=== PATIENT | female | born 1975 | race Caucasian/White ===

== ENCOUNTER → 2019-09-24 11:29 | Outpatient (CLI) | payer OTHER, SELFPAY ==
--- NOTE | ~2019-09-24 | MM_ITS ---
EXAMINATION: MM screening [facility] w [facility] del carmen HISTORY: Screening TECHNIQUE: Craniocaudal and mediolateral oblique 3-D tomosynthesis images were obtained and synthetic 2-D images were generated. CAD analysis was submitted and interpreted. COMPARISON: Comparison to multiple prior studies sequentially, with oldest reviewed study dated 09/05. BREAST PARENCHYMAL COMPOSITION: There are scattered areas of fibroglandular density. FINDINGS: There is no evidence of suspicious mass, calcification, or architectural distortion to sugg est malignancy in either breast. There has been no suspicious interval change. IMPRESSION: 1. No mammographic evidence of malignancy. 2. Recommend routine screening mammography in one year. BI-RADS Category 1: Negative Reviewed, dictated and finalized at location A.
== END ==
PROVIDERS: Visit Provider Nurse Practitioner
DX: Z12.31 Encounter for screening mammogram for malignant neoplasm of breast (principal)
CPT/HCPCS: 77063; 77067

== ENCOUNTER 2022-03-29 16:48 | Outpatient (RCR) | payer BC, SELFPAY ==
[2022-04-01] MEDS: RHO(D) IMMUNE GLOBULIN 300 MCG/2 ML SYRINGE IM (11:42)
== END 2022-06-27 23:59 | disposition home or self-care (01) ==
LOC: ANHLAB 16:48
PROVIDERS: PCP Family Medicine; Visit Provider Obstetrics & Gynecology Gynecology
DX: Z29.13 Encounter for prophylactic Rho(D) immune globulin (principal); O36.0190 Maternal care for anti-D [Rh] antibodies, unspecified trimester, not applicable or unspecified; Z3A.00 Weeks of gestation of pregnancy not specified
CPT/HCPCS: 36415; 85461; 86850; 86900; 86901; 90384; 96372; J2790

== ENCOUNTER 2022-07-28 12:21 | Outpatient (CLI) | payer BC, SELFPAY ==
[2022-07-28 13:04] LABS: Hematocrit 41.2 % (37.0-47.0); Hemoglobin 13.9 g/dL (12.0-15.0)
== END 2022-07-28 12:22 | disposition home or self-care (01) ==
PROVIDERS: Visit Provider Obstetrics & Gynecology Gynecology
DX: D25.9 Leiomyoma of uterus, unspecified (principal); Z01.818 Encounter for other preprocedural examination
CPT/HCPCS: 36415; 85014; 85018; 86850; 86900; 86901

== ENCOUNTER 2022-08-02 10:20 | Inpatient (IN) | payer BC, SELFPAY ==
[2022-07-27 09:54] VITALS: BMI 36.0
--- NOTE | 2022-07-27 09:58 | PC.NURSE ---
Report to the Outpatient Waiting Room, entrance under the green pavilion located off [facility], at time 6:00 on date 08/02/22. Planned Procedure Time: 7:30. Time changes happen often and if your time is changed the preop area will call you the afternoon before. - You and your visitor will be asked to self-screen and do not enter if you have any COVID symptoms. - A mask is optional within the hospital at this time. Patients may have clear liquids (water, carbonated beverages, clear teas, apple juice) until 3 hours prior to surgery (4:30) with a maximum of 20 ounces. - No food from midnight until time of surgery Take the following medications with a SIP of water the morning of surgery: NONE DO NOT STOP ANY OF YOUR OTHER PRESCRIPTION MEDICATIONS PRIOR TO SURGERY?EXCEPT THE FOLLOWING Medications to discontinue per physician: VITAMINS/SUPPLEMENTS Date to take last dose: 07/29/22 Please no make-up, nail turkmen, hairspray, perfume, deodorant, or body powder the day of surgery. No jewelry (including any body piercings) or valuables the day of surgery, leave them at home. Please take a shower or bath the night before, or the morning of, surgery with an antibacterial soap. Wear comfortable, loose fitting clothing. - Jewelry must be removed prior to entering the operating room. Rings and piercings that are not removed may be cut off. - The hospital will not accept responsibility for valuables. - Please leave all valuables, including medications, at home the day of surgery. If you are going home after surgery, a licensed regional company truck driver must drive you home. - NO public transportation without another adult if you receive anesthesia. - We recommend that an adult stay with you for 24 hours following discharge. - We also recommend that you do not drive, make important decision, drink alcoholic beverages, or take any drugs that were not prescribed by your health care provider for at least 24 hours after your discharge time. Follow any additional instructions given to you from your surgeon. If you or anyone in your household have experienced Covid symptoms in the past week, please notify your surgeon or the nurse liaison at the phone number below for possible testing. Telephone instructions given to PT - EVARISTO MERINO and asked if any additional questions and then verbalized understanding. Patient advised to call surgeon office or pre surgery nurse liaison [phone] if any additional questions.
[2022-08-02] VITALS (11 sets, daily range): BP systolic 93–125; BP diastolic 54–81; PULSE 49–64; RESP 10–18; TEMP 36.2–37.2; O2SAT 94–100
[2022-08-02] MEDS: ACETAMINOPHEN 500 MG TABLET 1000 MG PO (06:20)
--- NOTE | 2022-08-02 07:03 | WPDANESEPPF ---
Anes - Initial Pre Proc Eval Procedure: Operation Date: 08/02/22 07:30 Proposed Procedures p Total Abdominal Hysterectomy With Bilateral Salpingectomy - Leidy Moyer MD Date/Time: 08/02/22 07:03 Surgeon: Leidy Moyer MD Pre Op Diagnosis: Fibroids Patient Data Age: 47 Gender: F Height: 1.7 m Weight: 105.8 kg Allergies Allergy/AdvReac Type Severity Reaction Status Date / Time No Known Allergies Allergy Verified 08/02/22 06:17 Home Medications Medication Instructions Recorded Confirmed Type cholecalciferol (vitamin D3) 125 125 mcg PO DAILY 06/09/20 08/02/22 History mcg (5,000 unit) capsule multivitamin 1 tablet PO DAILY 07/27/22 08/02/22 History Patient hx anesthesia problems: none Family hx anesthesia problems: none Results Review: All pre-operative results and documents have been reviewed as part of the pre-operative evaluation. [facility] Past Medical History Medical History Acute pharyngitis, unspecified (10/17/18) Acute sinusitis, unspecified Body mass index [BMI] 31.0-31.9, adult (09/04/18) Dietary counseling and surveillance (09/04/18) Encounter for general adult medical examination without abnormal findings Encounter for screening for diabetes mellitus Encounter for screening for lipoid disorders Encounter for vitamin deficiency screening Low vitamin D level Screening for thyroid disorder Serum potassium elevated Family History Family History Mother Hypertension Family history of diabetes mellitus in first degree relative Psoriatic arthritis Spinal stenosis Diabetes mellitus Father Carcinoma of colon Family history of diabetes mellitus in first degree relative Diabetes mellitus Grandparent Family history of malignant neoplasm of breast Sibling No problems noted. Social History Social History Smoking status: Never smoker Second hand tobacco smoke exposure: No Alcohol intake: never Substance use: never Substance use type: does not use Living arrangements: with family Occupation/Education: occupation Additional occupation/education comments: [employer]. Gender identity (if verbalized by the patient): Female Spiritual care concerns: No Anes - Eval Final PreProcedure Day of Procedure 08/02/22 07:03 Patient weight: obese Heart: regular rate and rhythm Lungs: clear to auscultation Airway: Mallampati scale class II Neurological: alert and oriented Last oral intake: >/= 8 hours ASA classification: II Emergent: no Anesthetic plan: proceed Anesthesia type and monitoring: general ETT and standard monitoring Results Review: All pre-operative results and documents have been reviewed as part of the pre-operative evaluation. Informed Consent: The patient's anesthetic plan and its attendant risks and benefits were discussed with the patient/family/POA. Questions were solicited and answers provided to the satisfaction of the patient/family/POA.
[2022-08-02] MEDS: KETOROLAC 15 MG/ML VIAL (*BKC) IV PUSH (07:04)
[2022-08-02] MEDS: LACTATED RINGERS 1,000 ML 30 ML IV CONT ×2 (07:06→09:06)
[2022-08-02] MEDS: SCOPOLAMINE 1.5 MG PATCH TRANSDERM (07:06)
--- NOTE | 2022-08-02 07:22 | WPDHPUPDATE1 ---
History and Physical Update Update Date/Time: 08/02/22 07:22 History and Physical has been reviewed, including an updated exam of the patient. There are NO changes in the patient's condition. Risks, benefits, and alternatives have been discussed and questions answered. Patient agrees to proceed with procedure.
--- NOTE | 2022-08-02 07:22 | PM.IMHP ---
H&P: HPI History of Present Illness Date/Time: 08/02/22 07:22 Chief Complaint: fibroid uterus Narrative: The patient is a 47 year 2 para 0 aborta 2 being admitted for total abdominal hysterectomy with bilateral salpingectomy secondary to enlarged fibroid uterus. The patient's last ultrasound revealed her largest fibroid to be approximately 10cm and the uterus is approximately 16 to 18 week size. It was recommended to proceed with hysterectomy secondary to symptoms constant pressure. Her cycles have been regular and are not heavy. Risks of infection, bleeding, perforation or injury to internal organs (bowel, bladder, ureters, ovaries) are reviewed. The patient agrees to proceed. Review of Systems Review of Systems: All systems reviewed & are unremarkable except as noted in HPI and below ( History of present illnes) [facility] Past Medical History Medical History (Updated 08/02/22 @ 07:27 by Leidy Moyer MD) Body mass index [BMI] 31.0-31.9, adult (09/04/18) Low vitamin D level Spontaneous x2 no D&C required Family History Family History Mother Hypertension Family history of diabetes mellitus in first degree relative Psoriatic arthritis Spinal stenosis Diabetes mellitus Father Carcinoma of colon Family history of diabetes mellitus in first degree relative Diabetes mellitus Grandparent Family history of malignant neoplasm of breast Sibling No problems noted. Social History Social History Smoking status: Never smoker Second hand tobacco smoke exposure: No Alcohol intake: never Substance use: never Substance use type: does not use Living arrangements: with family Occupation/Education: occupation Additional occupation/education comments: [employer]. Gender identity (if verbalized by the patient): Female Spiritual care concerns: No Meds Home Medications and Allergies Home Medications Medication Instructions Recorded Confirmed Type cholecalciferol (vitamin D3) 125 125 mcg PO DAILY 06/09/20 08/02/22 History mcg (5,000 unit) capsule multivitamin 1 tablet PO DAILY 07/27/22 08/02/22 History Allergies Allergy/AdvReac Type Severity Reaction Status Date / Time No Known Allergies Allergy Verified 08/02/22 06:17 Exam Const: General: healthy appearing and alert Orientation/consciousness: patient oriented x3 Resp: Effort & Inspection: normal respiratory effort GI: GI Palp: Yes Soft to palpation, No Tenderness to palpation present (GI) and Yes Other GI palpation findings present ( fundus at U -4) : External Female Exam: normal external appearance Speculum Exam - Vagina: normal appearance of the vagina and normal vaginal discharge Speculum Exam - Cervix: normal appearance of the cervix Bimanual exam- vagina & uterus: consistency normal and enlarged ( approximately 16 weeks) Bimanual Exam- Adnexa, other: normal adnexae and No adnexal tenderness Neuro: General: patient oriented x3 Assessment and Plan Assessment and plan (1) Fibroid uterus: Code(s): D25.9 - Leiomyoma of uterus, unspecified Status: Acute Assessment and Plan: plan is to proceed with total abdominal hysterectomy with bilateral salpingectomy
[2022-08-02] MEDS: ceFAZolin 2 GM/D5W 50 ML 2 GM/50 ML BAG IVPB (07:30)
--- NOTE | 2022-08-02 08:58 | W.PM.PROC2 ---
Procedure Note - Detailed Date of Procedure 08/02/22 Pre-op Diagnosis Fibroids Post-op Diagnosis Same Procedure Performed Total abdominal hysterectomy with bilateral salpingectomy Surgeon Leidy Moyer MD Anesthesia General Findings The uterus is enlarged with multiple fibroids. Ovaries and tubes appeared normal. Description of Procedure The patient is taken to the operating room and placed under anesthesia in the dorsal supine position. She was prepped and draped in the usual sterile fashion. Pfannenstiel skin incision was made with a scalpel and carried down to the underlying layer of fascia. Fascia was nicked in the midline and extended laterally using Singleton scissors. Ochsner was used to tent the fascia which was then dissected off using sharp and blunt dissection. The rectus muscles are in the midline and the peritoneum entered using a Peon. The peritoneal incision was extended with blunt traction. Bowel was packed away using moist laparotomy sponges. The [place] is placed. The uterus is grasped on the cornua with large Peon . The round ligaments are doubly ligated with 0 Vicryl, transected, and the anterior leaf the broad ligament incised meeting in the midline. The window was created in the left posterior peritoneum. The utero-ovarian ligament is isolated and the tube brought to the proximal side with a [place]. Pedicle was doubly clamped, transected, and suture ligated with 0 Vicryl. The identical procedure was performed on the opposite side. The uterine vessels are skeletonized. The bladder is dissected off anteriorly using a sponge stick. The uterine vessels were then doubly clamped, transected, and suture ligated with 0 Vicryl. The cardinal and uterosacral ligaments are then serially clamped, transected, and suture ligated with 0 Vicryl. The uterosacral ligaments were tagged for future use. A scalpel was used to enter the vaginal cuff anterior. The vaginal cuff was grasped with Allis clamps as the specimen was amputated using Rolando scissors. The vaginal cuff was then closed using 0 Vicryl in a running locked fashion. The angles were tied to the ipsilateral uterosacral ligaments. The peritoneum on the right ovary is oozing and 2 [id number] sutures are required for hemostasis. The vaginal cuff is using and the right angle. A single stitch of 0 Vicryl was placed with good hemostasis. The pelvis is irrigated and noted to be hemostatic at all pedicles. Instruments and sponges are removed. The fascia was closed using 0 Vicryl in a running fashion. Subcutaneous tissues are irrigated made hemostatic using Bovie cautery. Skin is closed using 4-0 Vicryl in a subcuticular fashion. Sponge, needle, and instrument counts are correct per the OR staff. The patient is awakened from anesthesia and taken to recovery in stable condition. Estimated Blood Loss 125 Drains Yes ( Michel catheter) Packing No Pathology Yes ( uterus and tubes) Complications No immediate complications Condition Stable Disposition Floor
--- NOTE | 2022-08-02 09:03 | PM.DS ---
DS: Admitting Diagnosis Discharge Date 08/04/22 Admitting Diagnosis fibroid uterus DS: Discharge Diagnosis Discharge Diagnosis (1) Status post total abdominal hysterectomy: Code(s): Z90.710 - Acquired absence of both cervix and uterus Status: Acute DS: Summary Hospital Course Reason for hospitalization: postoperative care Hospital Course: At the time of discharge, the patient was tolerating regular diet, voiding, and ambulating. Pain is under good control. Status at Discharge Functional status at discharge: independent ambulation Overall status at discharge: patient is progressing back to baseline Time Spent with Patient Time attestation: Total time spent providing and/or coordinating discharge services: DS: Data Data Completed and Pending Pending studies at discharge: Pending at discharge 08/02/22 08:00 Surgical [PTH] Routine Discharge Plan Discharge Attending physician on discharge: Leidy Moyer Discharging Clinician: Roxanne Hedrick Anticipated Discharge Date/Time: 08/04/22 10:54 Patient Disposition: Home, Self-Care Activity: may shower, may drive after 2 weeks and pelvic rest Diet: regular Wound Care Instructions: incision open to air Stand Alone Forms: General Discharge Instructions Follow-up/Referrals: Leidy Moyer MD [Physician] - 1 Week ( And 6 week) Discharge Medications: New hydrocodone-acetaminophen 5-325 mg tablet 1 tablet PO Q4H PRN (Reason: pain) Qty: 20 0RF No Action cholecalciferol (vitamin D3) 125 mcg (5,000 unit) capsule 125 mcg PO DAILY multivitamin Tablet 1 tablet PO DAILY Date of admission: 08/02/22 10:20 Primary Care Provider: Holli Valdovinos Admitting Provider: Leidy Moyer Attending physician on admission: Leidy Moyer Condition: Stable
[2022-08-02] MEDS: fentaNYL CITRATE INJ (*CRX) 100 MCG/2 ML VIAL 25 MCG IV PUSH ×4 (09:34→09:55)
[2022-08-02] MEDS: KETOROLAC 30 MG/ML VIAL (*BKC) IV PUSH ×3 (10:51→23:06)
[2022-08-02] MEDS: DEXTROSE 5%/LACTATED RINGERS 1,000 ML 125 ML IV CONT ×2 (10:52→18:32)
[2022-08-02] MEDS: ONDANSETRON INJ 4 MG/2 ML VIAL IV PUSH (10:52)
[2022-08-02] MEDS: HYDROcodone/acetaminophen (*CRX) 5-325 MG TABLET 1 TAB PO ×3 (14:05→23:06)
[2022-08-02] MEDS: SIMETHICONE 80 MG TAB.CHEW PO ×4 (14:11→23:06)
[2022-08-02] MEDS: HYDROcodone/acetaminophen (*CRX) 10-325 MG TABLET 1 TAB PO (16:59)
[2022-08-03 04:00] VITALS: BP 93/62; PULSE 67; RESP 16; TEMP 36.8; O2SAT 97
[2022-08-03] MEDS: KETOROLAC 30 MG/ML VIAL (*BKC) IV PUSH (05:26)
[2022-08-03 05:47] LABS: Basophils Absolute Auto 0.1 K/mm3 (0.0-0.1); Basophils Percent Auto 0.4 % (0.2-1.2); Eosinophils Absolute Auto 0.1 K/mm3 (0-0.3); Eosinophils Percent Auto 0.4 % (0-4.4); Hematocrit 33.9 % (37.0-47.0); Hemoglobin 11.5 g/dL (12.0-15.0); Immature Granulocyte Absolute 0.04 K/mm3 (0.00-0.031); Immature Granulocyte Percent A 0.3 % (0-0.5); Lymphocytes Absolute Auto 2.29 K/mm3 (0.9-3.2); Lymphocytes Percent Auto 16.9 % (18.3-44.2); Mean Corpuscular HGB Conc 33.9 g/dl (32-36); Mean Corpuscular Hemoglobin 30.6 pg (26-34); Mean Corpuscular Volume 90.2 fl (80-100); Mean Platelet Volume 9.6 fl (7.4-10.4); Monocytes Absolute Auto 1.1 K/mm3 (0.1-0.6); Monocytes Percent Auto 8.1 % (2.6-8.5); Neutrophils Absolute Auto 10.1 K/mm3 (1.3-6.7); Neutrophils Percent Auto 73.9 % (45.5-73.1); Platelet Count Result 233 k/mm3 (150-375); Red Blood Count 3.76 M/mm3 (4.2-5.4); White Blood Count 13.6 K/mm3 (4.5-10.0)
--- NOTE | 2022-08-03 07:45 | PM.GYNPNOP ---
COMMERCIAL BAKING TEACHER - A/P Postoperative Procedures: Procedures Operation Date: 08/02/22 07:30 Actual Procedure Side Surgeon p Total Abdominal Hysterectomy With Bilateral Salpingectomy Bilateral Leidy Moyer MD Postoperative day: 1 Postoperative status: doing well Postoperative plan: routine post-op care Time Spent With Patient Time: Total time spent is greater than 50% in coordination of care (as documented) at patient's floor/unit and/or counseling patient: Time with patient: less than 15 minutes COMMERCIAL BAKING TEACHER- PN:Subj Post-Op Subjective Date/time seen: 08/03/22 07:45 Subjective: patient has no complaints and pain is well controlled Exam Narrative: inc c/d/i abdomen soft, nd COMMERCIAL BAKING TEACHER - PN: Obj Data Vital Signs Vital Signs: Vital Signs - 24 hr 08/02/22 09:06 08/02/22 09:20 08/02/22 09:35 Temperature 97.3 F L Pulse Rate 59 L 61 53 L Respiratory Rate 12 13 12 Blood Pressure 105/72 109/69 100/65 Pulse Oximetry 99 99 94 Oxygen Delivery Simple Face Mask Simple Face Mask Room Air Oxygen Flow Rate 10 10 08/02/22 09:50 08/02/22 10:05 08/02/22 10:40 Temperature 97.1 F L Pulse Rate 64 49 L 52 L Respiratory Rate 12 10 L 16 Blood Pressure 94/62 L 93/60 L 99/63 L Pulse Oximetry 95 95 95 Oxygen Delivery Room Air Room Air Oxygen Flow Rate 08/02/22 10:30 08/02/22 17:00 08/02/22 17:00 Temperature 97.5 F L Pulse Rate 52 L 62 62 Respiratory Rate 16 18 18 Blood Pressure 100/67 Pulse Oximetry 95 97 97 Oxygen Delivery Room Air Room Air Oxygen Flow Rate 08/02/22 19:20 08/02/22 23:00 08/03/22 04:00 Temperature 98.2 F 98.1 F 98.2 F Pulse Rate 61 63 67 Respiratory Rate 16 16 16 Blood Pressure 122/80 95/54 L 93/62 L Pulse Oximetry 96 95 97 Oxygen Delivery Oxygen Flow Rate Intake/Output Intake/Output: Intake & Output 07/31/22 08/01/22 08/02/22 08/03/22 23:59 23:59 23:59 23:59 Intake Total 3810 200 Output Total 940 1975 Balance 7460 -7565 Meds/Results Medications: Active Medications Generic Name Dose Route Start Last Admin Trade Name Freq PRN Reason Stop Dose Admin Hydrocodone Bitart/Acetaminophen 1 tab 08/02/22 10:20 08/02/22 16:59 Hydrocodone/Acetaminophen (*Crx) 10-325 Mg Tablet PO 1 tab Q3H PRN Administration Pain Rated 6 or Greater Hydrocodone Bitart/Acetaminophen 1 tab 08/02/22 10:20 08/02/22 23:06 Hydrocodone/Acetaminophen (*Crx) 5-325 Mg Tablet PO 1 tab Q3H PRN Administration Pain Rated 5 or Less Fentanyl Citrate 600 mcg in 30 mls @ 0.5 mls/hr 08/02/22 10:20 Fentanyl 600 Mcg/Ns 30 Ml Home Economist IV CONT PRN PRN FLOUR WORKER Management Protocol 10 MCG/HR Ibuprofen 600 mg 08/02/22 10:20 Ibuprofen 600 Mg Tablet PO Q6H PRN Cramping Ketorolac Tromethamine 30 mg 08/02/22 10:20 08/03/22 05:26 Ketorolac 30 Mg/Ml Vial (*Bkc) IV PUSH 08/07/22 10:19 30 mg Q6H PRN Administration Pain Rated 4-6 Ondansetron HCl 4 mg 08/02/22 10:20 08/02/22 10:52 Ondansetron Inj 4 Mg/2 Ml Vial IV PUSH 4 mg Q6H PRN Administration Nausea Simethicone 80 mg 08/02/22 10:20 08/02/22 23:06 Simethicone 80 Mg Tab.Chew PO 80 mg Q2H PRN Administration Gas Labs 08/03/22 05:35 Labs: Laboratory Results - last 24 hr 08/03/22 05:35 WBC 13.6 H RBC 3.76 L Hgb 11.5 L Hct 33.9 L MCV 90.2 MCH 30.6 MCHC 33.9 RDW 13.0 Plt Count 233 MPV 9.6 Immature Gran % (Auto) 0.3 Neut % (Auto) 73.9 H Lymph % (Auto) 16.9 L [place] % (Auto) 8.1 Eos % (Auto) 0.4 Baso % (Auto) 0.4 Lymph # (Auto) 2.29 [place] # (Auto) 1.1 H Eos # (Auto) 0.1 Baso # (Auto) 0.1 Abs Immat Gran (auto) 0.04 H Absolute Neuts (auto) 10.1 H Absolute Nucleated RBC 0.0 Nucleated RBC % 0.0
[2022-08-03 08:25] VITALS: BP 106/69; PULSE 62; RESP 16; TEMP 37.1; O2SAT 100
[2022-08-03] MEDS: HYDROcodone/acetaminophen (*CRX) 5-325 MG TABLET 1 TAB PO ×3 (11:36→19:48)
[2022-08-03] MEDS: IBUPROFEN 600 MG TABLET PO ×2 (11:37→19:46)
[2022-08-03] MEDS: SIMETHICONE 80 MG TAB.CHEW PO ×2 (11:37→16:07)
--- NOTE | 2022-08-03 13:59 | WPDANESPN ---
Anes - Prog Note Post-Op Date/Time: 08/03/22 13:59 Vital Signs: Last Vital Signs Temp 37.1 C 08/03/22 08:25 Pulse 62 08/03/22 08:25 Resp 16 08/03/22 08:25 BP 106/69 08/03/22 08:25 Pulse Ox 100 08/03/22 08:25 O2 Del Method Room Air 08/02/22 17:00 O2 Flow Rate 10 08/02/22 09:20 Pain Score (VAS): 0 I/O: Intake & Output 08/02/22 08/03/22 08/03/22 23:59 07:59 15:59 Intake Total 2120 200 940 Output Total 900 1975 200 Balance 1220 -2028 740 Laboratory Tests 08/03/22 05:35 08/03/22 05:35 WBC 13.6 H RBC 3.76 L Hgb 11.5 L Hct 33.9 L MCV 90.2 MCH 30.6 MCHC 33.9 RDW 13.0 Plt Count 233 MPV 9.6 Immature Gran % (Auto) 0.3 Neut % (Auto) 73.9 H Lymph % (Auto) 16.9 L [place] % (Auto) 8.1 Eos % (Auto) 0.4 Baso % (Auto) 0.4 Lymph # (Auto) 2.29 Armstrong # (Auto) 1.1 H Eos # (Auto) 0.1 Baso # (Auto) 0.1 Abs Immat Gran (auto) 0.04 H Absolute Neuts (auto) 10.1 H Absolute Nucleated RBC 0.0 Nucleated RBC % 0.0 Patient Feedback: Patient satisfied with anesthetic care.
[2022-08-03 16:00] VITALS: BP 109/67; PULSE 71; RESP 16; TEMP 36.7; O2SAT 100
[2022-08-03 19:45] VITALS: BP 123/77; PULSE 77; RESP 18; TEMP 36.6
--- NOTE | 2022-08-05 09:39 | PC.NURSE ---
Paper documentation exists on this patient due to [employer] downtime on 08/04/22 from 0030 to 1900.
--- OUTSIDE RECORDS SUMMARY | 2022-11-23 11:45 | XMS_ITS | Continuity of Care Document ---
Author Name Unknown Organization [facility] Address [address] [place] [address] Care Team Providers Care Poultry Farm Worker Name Role Phone Holli Valdovinos Primary Care Physician Encounter [facility] [id number] Date(s): 10/16/21 - 10/16/[address] [address] Discharge Disposition: Home or Self Care Attending Physician: Leidy Moyer MD Admitting Physician: Leidy Moyer MD Allergies, Adverse Reactions, Alerts No Known Allergies Assessment and Plan Future Appointments Immunizations Given and Recorded Vaccine Date Status Refusal Reason tetanus/diphth/pertuss (Tdap) adult/adol 06/09/20 Recorded Problem List No Known Problems Social History Social History Type Response Smoking Status Never (less than 100 in lifetime) entered on: 01/15/21 Sex Patient Care team information Personnel Name: Holli Valdovinos SLOT FLOOR SUPERVISOR Address: Address: [address] [place] [address]
--- OUTSIDE RECORDS SUMMARY | 2022-11-23 11:45 | XMS_ITS | Continuity of Care Document ---
Author Name Unknown Organization [facility] Address [address] [place] [address] Care Team Providers Care Position Classification Specialist Name Role Phone Holli Valdovinos Primary Care Physician Encounter [facility] [id number] Date(s): 02/27/22 - 02/27/22 [facility] [address] [place] [address] [place] Encounter Diagnosis Vaginal bleeding in (Discharge Diagnosis) - 02/27/22 (Discharge Diagnosis) - 02/27/22 Discharge Disposition: Home or Self Care Attending Physician: Augustin Sanchez MD Admitting Physician: Augustin Sanchez MD Allergies, Adverse Reactions, Alerts No Known Allergies Assessment and Plan Future Appointments Future Scheduled Tests Radiology* MG Mammo Diagnostic Right w/ Vik 04/07/22 * US Breast Limited Right 04/07/22 Functional Status 02/27/22 Family Member Travel History No recent t ravel Recent Travel History No recent travel Other exposure to Infectious Disease Non e Immunizations Given and Recorded Vaccine Date Status Refusal Reason tetanus/diphth/pertuss (Tdap) adult/adol 06/09/20 Recorded Medications multivitamin adult, oral tablet 1 tab, Oral, Daily, # 30 tab, 0 Refill(s) Start Date: 02/27/22 Status: Ordered Mental Status 02/27/22 Eye Opening Response Zaira Spontaneous ly Best Verbal Response [place] Oriented Best Motor Response [place] Obeys comman ds Zaira Coma Score 15 Problem List No Known Problems Results Laboratory List Name Date .Urine Volume 02/27/22 Urinalysis Microscopic 02/27/22 Urinalysis with Culture if Indicated 02/27 Automated Diff 02/27/22
--- OUTSIDE RECORDS SUMMARY | 2022-11-23 11:45 | XMS_ITS | Continuity of Care Document ---
Author Name Unknown Organization [facility] Address [address] [place] [address] Care Team Providers Care Television Host Name Role Phone Holli Valdovinos Primary Care Physician Encounter [facility] [id number] Date(s): 11/14/21 - 11/14/21 [facility] [address] [place] [address]- [place] Discharge Disposition: Home or Self Care Attending Physician: Holli Valdovinos NP Admitting Physician: Holli Valdovinos FISHERY DIVISION CHIEF Allergies, Adverse Reactions, Alerts No Known Allergies Immunizations Given and Recorded Vaccine Date Status Refusal Reason tetanus/diphth/pertuss (Tdap) adult/adol 06/09/20 Recorded Problem List No Known Problems Results Laboratory List Name Date Automated Diff 11/14/21 CBC w/ Diff 11/14/21 Comprehensive Metabolic Panel (CMP) 11/14 Free T4 11/14/21 Lipid Panel 11/14/21 T3 Free 11/14/21 Thyroid Stimulating Hormone 11/14/21 Most recent to oldest [Reference Range]: 1 WBC [4.0-11.5 K/mcL] 7.4 K/mcL (11/14/21 9:15 AM) RBC [4.20-5.40 x10^6/mcL] 4.28 x10^6/mcL (11/14/21 9:15 AM) Neutro Auto 57.2 % *NA* (11/14/21 9:15 AM) Lymph Auto 30.2 % *NA* (11/14/21 9:15 AM) [place] Auto 6.6 % *NA* (11/14/21 9:15 AM) Basophil Auto 0.8 % *NA* (9/24/22 9:15 AM) BUN [7-18 mg/dL] 10 mg/dL (11/14/21 9:15 AM) Cholesterol Total [100-199 mg/dL] 204 mg /dL *HI* (11/14/21 9:15 AM) LDL [<=9
--- OUTSIDE RECORDS SUMMARY | 2022-11-23 11:45 | XMS_ITS | Continuity of Care Document ---
Author Name Unknown Organization [facility] Address [address] 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 Name Role Phone [email or web address] (Cerner 10), Physician Primary Care Physic sathya Unavailable Encounter [facility] [id number] Date(s): 01/15/21 - 01/16/[address] [address]- [place] Encounter Diagnosis Cough(Discharge Diagnosis) - 01/15/21 COVID(Discharge Diagnosis) - 01/15/21 Discharge Disposition: Home or Self Care Attending Physician: Kimo Quinteros MD Admitting Physician: Kimo Quinteros MD Allergies, Adverse Reactions, Alerts No Known Allergies Functional Status 01/15/21 Other exposure to Infectious Disease Com munity exposure to COVID-19 within the last 14 days, COVID-19 Symptoms Present Medications Tessalon Perles 100 mg oral capsule 100 mg = 1 cap, Oral, TID, PRN as needed for cough, X 10 days, # 30 cap, 0 Refill(s), 01/25/21 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:00 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 Start Date: 01/15/21 Stop Date: 01/25/21 Status: Ordered Tessalon Perles 100 mg oral capsule 100 mg = 1 cap, Oral, Once, PRN cough, 0 Refill(s) Start Date: 01/15/21 Status: Ordered Zofran 4 mg oral tablet 4 mg = 1 tab, Oral, every 8 hr, # 10 tab, 0 Refill(s), 01/16/21 23:06:00 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 Start Date: 01/15/21 Stop Date: 01/16/21 Status: Ordered Zofran ODT 4 mg oral tablet, disintegrating 4 mg = 1 tab, Oral, Once, 0 Refill(s) Start Date: 01/15/21 Status: Ordered Problem List No Known Problems Results Radiology Reports * Exam Date Time Procedure Performing Provider Status 01/15/21 11:22 PM XR Chest 2 Views Dona Meneses RT(R ); Auth (Verified) Notes: (XR Chest 2 Views) Reason For Exam: Shortness of breath XR Chest 2 Views EXAM DESCRIPTION: XR Chest 2 Views REASON FOR STUDY: sinus drainage and chest tightness for 1 week, states tested positive for COVID-19 5 days ago DURATION: 1 week SMOKING HISTORY: TECHNIQUE: Frontal and lateral radiographic views of the chest acquired. COMPARISON: None available FINDINGS: LUNGS/PLEURA: No pneumonic consolidation, pleural fluid or pneumothorax. Subtle airspace opacity at the right lower lung above the diaphragm may be present posteriorly on the lateral view. There is a somewhat mass
--- OUTSIDE RECORDS SUMMARY | 2022-11-23 11:46 | XMS_ITS | Continuity of Care Document ---
Author Name Unknown Organization [facility] Address [address] [place] [address] Care Team Providers Care Planting Material Remover Name Role Phone Holli Valdovinos Primary Care Physician Encounter [facility] [id number] Date(s): 04/07/22 - 04/07/22 [facility] [address] [place] [address]- [place] Discharge Disposition: Home or Self Care Attending Physician: Leidy Moyer MD Admitting Physician: Leidy Moyer MD Allergies, Adverse Reactions, Alerts No Known Allergies Assessment and Plan Future Appointments Future Scheduled Tests Radiology* MG Mammo Diagnostic Bilateral w/ Memo 09/28/22 Immunizations Given and Recorded Vaccine Date Status Refusal Reason tetanus/diphth/pertuss (Tdap) adult/adol 06/09/20 Recorded Medications multivitamin adult, oral tablet 1 tab, Oral, Daily, # 30 tab, 0 Refill(s) Start Date: 02/27/22 Status: Ordered Problem List No Known Problems Results Radiology Reports * Exam Date Time Procedure Performing Provider Status 04/07/22 8:22 AM MG Mammo Diagnostic Right w/ Memo Kingsley Pérez RT(R)(M)(CT)(ARRT); Auth (Verified) Notes: (MG Mammo Diagnostic Right w/ Memo) Reason For Exam: [id number] abnormal mammogram MG Mammo Diagnostic Right w/ Memo - MG MAMMO DIAGNOSTIC RIGHT W/ MEMO UNILATERAL RIGHT DIGITAL DIAGNOSTIC MAMMOGRAM 3D/2D WITH CAD WITH MEDIOLATERAL OBLIQUE CRANIOCAUDAL: 04/07/2022 The study was acquired using full field digital technology and interpreted from soft copy. Current study was also evaluated with ICAD version 7.2. 2D digital mammographic views, as well as 3D digital tomosynthesis were performed in the CC and MLO projections. CLINICAL: Patient returns today for a six month evaluation of the right breast. Patient has no complaints. No personal history of cancer. No family history of breast cancer. COMPARISONS: Comparison is made to exams dated: 10/16/2021, 10/16/2021, 10/07/2021 [facility], and 09/24/2019 [facility]. BREAST TISSUE:There are scat
--- OUTSIDE RECORDS SUMMARY | 2022-11-23 11:46 | XMS_ITS | Continuity of Care Document ---
Author Name Unknown Organization [facility] Address [address] [place] [address] Care Team Providers Care Mine Manager Name Role Phone Holli Valdovinos Primary Care Physician [phone] Encounter [facility] [id number] Date(s): 11/04/21 - 11/04/21 [facility] [address] [place] [address] [place] Encounter Diagnosis Encounter to establish care(Discharge Diagnosis) - 11/04/21 Fatigue(Discharge Diagnosis) - 11/04/21 Difficulty sleeping(Discharge Diagnosis) - 11/04/21 Family hx of colon cancer(Discharge Diagnosis) - 11/04/21 Discharge Disposition: Home or Self Care Attending Physician: Holli Valdovinos 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 Allergies, Adverse Reactions, Alerts No Known Allergies Assessment and Plan Future Scheduled Tests Laboratory* CBC w/ Diff 11/04/21 * Comprehensive Metabolic Panel 11/04/21 * Lipid Panel 11/04/21 * Thyroid Stimulating Hormone 11/04/21 * T3 Free 11/04/21 * Free T4 11/04/21 Functional Status 11/04/21 Other exposure to Infectious Disease Non e Immunizations Given and Recorded Vaccine Date Status Refusal Reason tetanus/diphth/pertuss (Tdap) adult/adol 06/09/20 Recorded Problem List No Known Problems Vital Signs Most recent to oldest [Reference Range]: 1 Temperature Tympanic [36.6-37.9 Deg C] 3 7 Deg C (11/04/21 4:10 PM) Peripheral Pulse Rate [60-100 bpm] 96 bp m (11/04/21 4:10 PM) Respiratory Rate [12-24 br/min] 20 br/mi n (11/04/21 4:10 PM) Blood Pressure [90-140/60-90 mmHg] 122/7 6mmHg (11/04/21 4:10 PM) Weight 106.59 kg (11/04/21 4:10 PM) Weight Measured (lbs) 234.99 lb (11/04/21 4:10 PM) Height 170.18 cm (11/04/21 4:10 PM) Height/Length Measured (inches) 67 inch (11/04/21 4:10 PM) BSA Measured 2.24 m2 (11/04/21 4:10 PM)
--- OUTSIDE RECORDS SUMMARY | 2022-11-23 11:46 | XMS_ITS | Continuity of Care Document ---
Author Name Unknown Organization [facility] Address [address] [place] [address]- Care Team Providers Care Loft Worker Head Name Role Phone ZAndrea (Cerner 10), Physician Primary Care Physic sathya Unavailable Encounter [facility] [id number] Date(s): 05/13/21 - 05/13/21 [facility] [address] [place] [address]- Encounter Diagnosis Tonsillitis with exudate(Discharge Diagnosis) - 05/13/21 Discharge Disposition: Home or Self Care Attending Physician: Sivan Pavon NP Allergies, Adverse Reactions, Alerts No Known Allergies Functional Status 05/13/21 Other exposure to Infectious Disease COV ID-19 Symptoms Present Immunizations Given and Recorded Vaccine Date Status Refusal Reason tetanus/diphth/pertuss (Tdap) adult/adol 06/09/20 Recorded Medications amoxicillin 500 mg oral capsule 500 mg = 1 cap, Oral, every 12 hr, X 10 days, # 20 cap, 0 Refill(s), 05/23/21 9:06:00 CDT, Pharmacy: [id number], 170, cm, 01/15/21 23:01:00 ADMINISTRATIVE SERVICES ASSISTANT, Height/Length Dosing, 95, kg, 01/15/21 23:01:00 ADMINISTRATIVE SERVICES ASSISTANT, Weight Dosing Start Date: 05/13/21 Stop Date: 05/23/21 Status: Ordered Problem List No Known Problems Results Laboratory List Name Date Rapid Strep POC 05/13/21 Most recent to oldest [Reference Range]: 1 Rapid Strep POC Result Negative (05/13/21 8:43 AM) Vital Signs Most recent to oldest [Reference Range]: 1 Temperature Oral [35.8-37.3 Deg C] 36.4 Deg C (05/13/21 8:28 AM) Peripheral Pulse Rate [60-100 bpm] 100 b pm (05/13/21 8:28 AM) Respiratory Rate [12-24 br/min] 20 br/mi n (05/13/21 8:28 AM) Blood Pressure [90-140/60-90 mmHg] 129/9 4mmHg (05/13/21 8:28 AM) Social History Social History Type Response Smoking Status Never (less ingrid
--- OUTSIDE RECORDS SUMMARY | 2022-11-23 11:46 | XMS_ITS | Continuity of Care Document ---
Author Name Unknown Organization [facility] Address [address] [place] [address] Care Team Providers Care Garment Form Assembler Name Role Phone Holli Valdovinos Primary Care Physician Encounter [facility] [id number] Date(s): 03/16/22 - 03/16/22 [facility] [address] [place] [address] [place] Discharge Disposition: Home or Self Care Attending Physician: Leidy Moyer MD Admitting Physician: Leidy Moyer MD Allergies, Adverse Reactions, Alerts No Known Allergies Assessment and Plan Future Appointments Future Scheduled Tests Radiology* MG Mammo Diagnostic Right w/ Vik 04/07/22 * US Breast Limited Right 04/07/22 Immunizations Given and Recorded Vaccine Date Status Refusal Reason tetanus/diphth/pertuss (Tdap) adult/adol 06/09/20 Recorded Medications multivitamin adult, oral tablet 1 tab, Oral, Daily, # 30 tab, 0 Refill(s) Start Date: 02/27/22 Status: Ordered Problem List No Known Problems Results Laboratory List Name Date Beta hCG Quantitative 03/16/22 Most recent to oldest [Reference Range]: 1 Beta hCG Qnt 24.0 mIntlUnit/mL *NA* (03/16/22 4:23 PM) Social History Social History Type Response Tobacco Never tobacco user T obacco Use:. Sex Patient Care team information Personnel Name: Holli Valdovinos INTERNET SALES ASSOCIATE Address: Address: [address] [place] [address]
--- OUTSIDE RECORDS SUMMARY | 2022-11-23 11:46 | XMS_ITS | Continuity of Care Document ---
Author Name Unknown Organization Replaced by [facility] Address [address] [place] [address] Encounter [facility] [id number] Date(s): 09/17/21 - 09/17/21 [facility] [address], [place] [address] Discharge Disposition: Home or Self Care Attending Physician: Roxanne Hedrick NP Admitting Physician: Roxanne Hedrick NP Allergies, Adverse Reactions, Alerts No Known Allergies Assessment and Plan Future Appointments Diagnostic Tests Pending * Vitamin D, 25-Hydroxy LC 09/17/21 Future Scheduled Tests Radiology* MG Mammo Screening Bilateral w/ Vik 10/07/21 Immunizations Given and Recorded Vaccine Date Status Refusal Reason tetanus/diphth/pertuss (Tdap) adult/adol 06/09/20 Recorded Problem List No Known Problems Social History Social History Type Response Smoking Status Never (less than 100 in lifetime) entered on: 01/15/21 Sex
--- OUTSIDE RECORDS SUMMARY | 2022-11-23 11:46 | XMS_ITS | Continuity of Care Document ---
Author Name Unknown Organization [facility] Address [address] [place] [address] Care Team Providers Care Health Services Rn Name Role Phone Holli Valdovinos Primary Care Physician [phone] Encounter [facility] [id number] Date(s): 10/07/21 - 10/07/[address] [address] [place] Discharge Disposition: Home or Self Care [...] Care team information Personnel Name: Holli Valdovinos IMPROVEMENT ANALYST Address: Address: [address] [place] [address]
== END 2022-08-04 10:54 | disposition home or self-care (01) | DRG 743 ==
LOC: ANHOB2 10:54 → ANHLDR 08-09 09:16
PROVIDERS: Admitting Provider Obstetrics & Gynecology Gynecology; Visit Provider Advanced Practice Midwife
PROC: 0UT94ZZ Resection of Uterus, Percutaneous Endoscopic Approach (ICD-10-PCS; principal; 2022-08-02 07:30)
DX: D25.9 Leiomyoma of uterus, unspecified (principal); E66.9 Obesity, unspecified; Z68.36 Body mass index [BMI] 36.0-36.9, adult
CPT/HCPCS: 36415; 85025; 88307; 99199; A9270; J0690; J1100; J1170; J1885; J2250; J2405; J2704; J2710; J3010; J7120; J7121; Q9968